=== PATIENT | male | born 2000 | race African-American/Black ===

== ENCOUNTER 2020-05-22 03:39 | Emergency (ER) | payer SELFPAY ==
[2020-05-22] MEDS ORDERED: Proparacaine 0.5% Opth 15 ML BOT ONE (04:04)
[2020-05-22] MEDS ORDERED: Fluorescein Opthalmic Strip ONE (04:06)
== END 2020-05-22 10:12 | disposition home or self-care (01) ==
LOC: ERS 03:39
DX: S00.83XA Contusion of other part of head, initial encounter (principal); F10.129 Alcohol abuse with intoxication, unspecified; X58.XXXA Exposure to other specified factors, initial encounter
CPT/HCPCS: 70450; 70486; 72125